=== PATIENT | female | born 1970 | race Caucasian/White ===

== ENCOUNTER 2018-08-09 23:36 | Inpatient (IN) | payer OTHER ==
[~2018-08-09] VITALS: Ht 170.2 cm; Wt 81.0 kg
[~2018-08-09 23:36] MED LIST: BACTRIM DS1 TAB PO; CELEXA10 MG PO; CLEOCIN HCL300 MG PO; COG1 PO; HALDOL5 MG/ML PO; KLO0.5 PO; KLONOPIN2 MG PO; LAC PO; LINZESS145 MC1 PO; MOTRIN800 MG PO; TOPAMAX200 MG PO; TRAZODONE PO; ZOC10 PO; [UNRECOGNIZED DRUG - OTHER] PO
[2018-08-09 23:39] VITALS: Ht 170.2 cm; Wt 81.0 kg
[2018-08-10 00:20] LABS: BASOPHIL % 0.6 % (0-2); PLATELET COUNT 210 x10^3mcL (130-400); RED CELL DISTRIBUTION WIDTH 12.3 % (11.5-14.5)
[2018-08-10 00:33] LABS: CALCIUM 8.9 mg/dL (8.5-10.1); CHLORIDE SERUM 99 mmol/L (98-107); CREATININE SERUM 0.8 mg/dL (0.6-1.0); GFR1 > 60 mL/min; GLUCOSE SERUM 115 mg/dL (74-106); POTASSIUM SERUM 3.2 mmol/L (3.5-5.1); SODIUM SERUM 133 mmol/L (136-145)
[2018-08-10 00:37] LABS: ALBUMIN 3.6 g/dL (3.4-5.0); ALKALINE PHOSPHATASE 50 U/L (46-116); ALT/SGPT 22 U/L (14-59); AST/SGOT 12 U/L (15-37); BILIRUBIN TOTAL 0.19 mg/dL (0.20-1.00); TOTAL PROTEIN, SERUM 6.1 g/dL (6.4-8.2)
[2018-08-10 01:49] LABS: AMPHETAMINE QUAL UR NONE DETECTED (See below)
[2018-08-10 04:05] VITALS: BP 120/77
[2018-08-10 04:26] LABS: CHOLESTEROL/HDL RATIO 3.8; MAGNESIUM 1.9 mg/dL (1.8-2.4); PHOSPHOROUS 2.5 mg/dL (2.5-4.9)
[2018-08-10 04:35] LABS: FREE T4 0.82 ng/dL (0.76-1.46)
[2018-08-10 04:36] VITALS: BP 120/77
[2018-08-10 04:36] LABS: FREE THYROXINE INDEX 1.5 ug/dL (1.4-4.5); T4(THYROXINE) 4.4 ug/dL (4.7-13.3)
[2018-08-10 07:58] VITALS: BP 90/47
[2018-08-10 12:26] LABS: T3 TOTAL 0.57 ng/mL
[2018-08-10 16:14] VITALS: BP 92/47
[2018-08-10 21:16] VITALS: BP 91/41
[2018-08-11 05:57] VITALS: BP 103/61
[2018-08-11 06:34] LABS: BASOPHIL % 0.8 % (0-2); PLATELET COUNT 204 x10^3mcL (130-400); RED CELL DISTRIBUTION WIDTH 12.5 % (11.5-14.5)
[2018-08-11 06:56] LABS: CHLORIDE SERUM 111 mmol/L (98-107); GFR1 > 60 mL/min; GLUCOSE SERUM 95 mg/dL (74-106); MAGNESIUM 2.2 mg/dL (1.8-2.4); PHOSPHOROUS 4.1 mg/dL (2.5-4.9); POTASSIUM SERUM 4.3 mmol/L (3.5-5.1); SODIUM SERUM 144 mmol/L (136-145)
[2018-08-11 08:07] VITALS: BP 107/62
[2018-08-11 09:26] LABS: microscopic required? NO
[2018-08-11 09:42] LABS: urine erythrocyte NEGATIVE (NEGATIVE)
[2018-08-11 13:25] VITALS: BP 86/45
[2018-08-11 16:18] VITALS: BP 91/52
[2018-08-11 21:21] VITALS: BP 127/58
[2018-08-12 05:43] VITALS: BP 110/62
[2018-08-12 06:13] LABS: BASOPHIL % 0.6 % (0-2); PLATELET COUNT 217 x10^3mcL (130-400); RED CELL DISTRIBUTION WIDTH 12.6 % (11.5-14.5)
[2018-08-12 06:29] LABS: CALCIUM 8.4 mg/dL (8.5-10.1); CHLORIDE SERUM 110 mmol/L (98-107); CREATININE SERUM 0.9 mg/dL (0.6-1.0); GFR1 > 60 mL/min; GLUCOSE SERUM 99 mg/dL (74-106); PHOSPHOROUS 3.3 mg/dL (2.5-4.9); POTASSIUM SERUM 3.9 mmol/L (3.5-5.1); SODIUM SERUM 144 mmol/L (136-145)
[2018-08-12 09:00] VITALS: BP 107/60
[2018-08-12] MEDS ORDERED: BACTRIM DS1 TAB PO (10:35)
[2018-08-12 10:53] VITALS: BP 107/60
== END 2018-08-12 14:45 | disposition home or self-care (01) | DRG 812 ==
LOC: ED 23:36 → IC 08-10 02:40 → DU 08-10 02:40 → IC 08-10 04:06 → DU 08-10 12:28 → MU 08-11 17:19
PROVIDERS: Emergency Medicine; Internal Medicine; ADMIT General Practice
DX: T42.4X1A Poisoning by benzodiazepines, accidental (unintentional), initial encounter (principal); N17.0 Acute kidney failure with tubular necrosis; J96.01 Acute respiratory failure with hypoxia; T40.2X1A Poisoning by other opioids, accidental (unintentional), initial encounter; F31.9 Bipolar disorder, unspecified; E27.40 Unspecified adrenocortical insufficiency; E87.1 Hypo-osmolality and hyponatremia; R00.1 Bradycardia, unspecified; K04.7 Periapical abscess without sinus; E87.6 Hypokalemia; R07.89 Other chest pain; G40.909 Epilepsy, unspecified, not intractable, without status epilepticus; E78.5 Hyperlipidemia, unspecified; Z68.26 Body mass index [BMI] 26.0-26.9, adult; Y92.238 Other place in hospital as the place of occurrence of the external cause
CPT/HCPCS: 83880; 84439; 87804; J2270; J2310; J2405; J2543; J7030; Q0092; Q9967

== ENCOUNTER 2019-03-24 11:34 | Emergency (ER) | payer OTHER ==
[~2019-03-24] VITALS: Ht 170.2 cm; Wt 89.8 kg
[2019-03-24 12:13] VITALS: BP 128/77; Ht 170.2 cm; Wt 89.8 kg
== END 2019-03-24 15:47 | disposition home or self-care (01) ==
LOC: ED 11:34
DX: Z76.0 Encounter for issue of repeat prescription (principal); F31.9 Bipolar disorder, unspecified; E66.9 Obesity, unspecified; Z68.31 Body mass index [BMI] 31.0-31.9, adult; Z90.710 Acquired absence of both cervix and uterus; Z90.89 Acquired absence of other organs; Z98.890 Other specified postprocedural states

== ENCOUNTER 2019-07-12 14:20 | Emergency (ER) | payer OTHER ==
[~2019-07-12] VITALS: Ht 170.2 cm; Wt 97.5 kg
[2019-07-12 14:29] VITALS: Ht 170.2 cm; Wt 97.5 kg
[2019-07-12 16:20] LABS: UA SPECIFIC GRAVITY 1.025 (1.005-1.035); microscopic required? YES; urine erythrocyte TRACE (NEGATIVE)
[2019-07-12 16:30] LABS: CALCIUM 8.1 mg/dL (8.5-10.1); CHLORIDE SERUM 106 mmol/L (98-107); CREATININE SERUM 0.8 mg/dL (0.6-1.0); GFR1 > 60 mL/min; GLUCOSE SERUM 89 mg/dL (74-106); SODIUM SERUM 141 mmol/L (136-145)
[2019-07-12 16:34] LABS: ALBUMIN 3.4 g/dL (3.4-5.0); ALKALINE PHOSPHATASE 53 U/L (46-116); ALT/SGPT 19 U/L (14-59); AST/SGOT 23 U/L (15-37); BILIRUBIN TOTAL 0.23 mg/dL (0.20-1.00); LIPASE 119 IU/L (73-393); TOTAL PROTEIN, SERUM 6.7 g/dL (6.4-8.2)
[2019-07-12 16:52] LABS: T3 TOTAL 0.96 ng/mL
[2019-07-12 16:57] LABS: FREE T4 0.91 ng/dL (0.76-1.46); FREE THYROXINE INDEX 2.1 ug/dL (1.4-4.5); T4(THYROXINE) 6.1 ug/dL (4.7-13.3)
[2019-07-12 17:46] LABS: AMPHETAMINE QUAL UR NONE DETECTED (See below)
[2019-07-13 15:05] VITALS: BP 120/87
== END 2019-07-13 15:05 | disposition home or self-care (01) ==
LOC: ED 14:20
PROVIDERS: Emergency Medicine
DX: R44.0 Auditory hallucinations (principal); R11.10 Vomiting, unspecified; R11.2 Nausea with vomiting, unspecified; K29.20 Alcoholic gastritis without bleeding; Z90.710 Acquired absence of both cervix and uterus; Z90.89 Acquired absence of other organs
CPT/HCPCS: 84439; 87804; G0480; J1885; J2405; J3490; J7030; Q0092